=== PATIENT | male | born 1965 | race Caucasian/White ===

== ENCOUNTER 2024-04-29 11:27 | Inpatient (IN) | payer BC ==
--- NOTE | 2024-04-29 12:11 | RAD REPORT ---
EXAM DESCRIPTION: CT - Stone Protocol - 04/29/2024 11:58 am CLINICAL HISTORY: Gross hematuria COMPARISON: None. TECHNIQUE: Computed axial tomography of the abdomen pelvis was obtained without oral or IV contrast. Lack of IV and oral contrast limits evaluation of solid organs, appendix, bowel, and vessels. Jenkins l reformatted images were obtained and reviewed. All CT scans are performed using dose optimization technique as appropriate and may include automated exposure control or mA/KV adjustment according to patient size. FINDINGS: Tiny calculus left kidney. No hydronephrosis. No left ureteral calculus seen. Several small right renal calculi appear borderline hydronephrosis. Right perirenal stranding. Right ureteral calculus is not visualized. No bladder calculus. 1 centimeter mass extends off the lower alcira e right kidney. This is nonspecific but may represent a cyst. Liver, spleen, pancreas and adrenals grossly normal. The liver, spleen, pancreas and adrenals appear grossly normal There is no evidence of diverticulitis. The appendix appears normal IMPRESSION: Nonobstructing bilateral renal calculi. Borderline right hydronephrosis. Perhaps this is secondary to a recently passed calculus.
[2024-04-29 12:26] LABS: Absolute Eosinophils 0.1 K/uL (0-0.5); Absolute Lymphocytes (CBC) 0.4 K/uL (0.7-4.9); Absolute Monocytes 0.1 K/uL (0.1-1.3); Absolute Neutrophil 16.4 K/uL (1.8-8.0); Basophils % 0.2 % (0-1.3); Eosinophils % 0.3 % (0-4.4); Hematocrit 50.1 % (39.6-49.0); Lymphocytes % 2.2 % (15.3-44.8); MCH 31.5 pg (27.0-35.0); MCV 92.7 fL (80-100); MPV 8.6 fL (7.6-11.3); Monocytes % 0.7 % (3.3-12.3); Neutrophils % 96.6 % (41.7-73.7); Platelets 203 thou/uL (152-406); Red Cell Distribution Width 13.5 % (12.1-15.2)
[2024-04-29] MEDS ORDERED: NA CHLORIDE 0.9% 1,000 ML ONE ×2 (12:57→14:17)
[2024-04-29 12:59] LABS: Differential Total Cells Count 100; Segmented Neutrophils 81 % (40-80); White Blood Cell Scan OK (OK)
[2024-04-29 13:00] LABS: Band Neutrophils 5 % (0-1); Blood Morphology Comment NOT SEEN (NOT SEEN); Eosinophils 1 % (0-3); Lymphocytes 3 % (15-42); Metamyelocytes 1 % (0-0); Monocytes 9 % (0-10); Platelet Estimate ADEQ; Toxic Granulation 1+
[2024-04-29 13:05] LABS: Albumin 2.5 g/dL (3.4-5.0); Albumin/Globulin Ratio 0.4 (1.1-1.8); Anion Gap 16.7 mEq/L (5.0-15.0); Bilirubin Total 0.9 mg/dL (0.2-1.0); Globulin 5.9 g/dL (2.3-3.5); Potassium 3.7 mEq/L (3.5-5.1); Protein, Total 8.4 g/dL (6.4-8.2)
[2024-04-29 13:25] LABS: Urine RBC >50 /HPF (None Seen); Urine WBC 20-50 /HPF (<5)
[2024-04-29 13:26] LABS: PTT, Activated Partial Thromb 27.2 SECONDS (24.3-36.9); Protime INR 1.28
[2024-04-29 13:26] LABS: Sqamous Epithelial <5 /HPF (None Seen); Urine Bacteria None Seen /HPF (<20); Urine Culture Reflex Order REFLEXED
[2024-04-29 13:42] LABS: Urine Micro Reflex YN NO BILL MICROSCOPIC
--- NOTE | 2024-04-29 13:52 | EDPHYS ---
Physician Documentation [facility] Name: Jose Aguilar Age: 58 yrs Sex: Male : 1965 Arrival Date: 04/29/2024 Time: 11:27 Bed 25 Private MD: ED Physician Ashwin Godinez HPI: 04/29 13:26 This 58 yrs old Male presents to ER via Ambulatory with complaints of Urinary Problem - rn Bleeding. 13:26 The patient presents with urinary symptoms, Hematuria. Onset: The symptoms/episode rn began/occurred 1 week(s) ago. Modifying factors: The symptoms are alleviated by nothing, the symptoms are aggravated by urinating. Severity of symptoms: At their worst the symptoms were mild, in the emergency department the symptoms are unchanged. The patient has not experienced similar symptoms in the past. The patient has not recently seen a physician. Historical: - Allergies: 11:47 No Known Allergies; iw - Home Meds: 11:50 None [Active]; iw - PMHx: 11:50 None; iw - PSHx: 11:50 None; iw - Immunization history:: Adult Immunizations not up to date. - Infectious Disease History:: Denies. - Social history:: Smoking status: Patient reports the use of cigarette tobacco products, smokes one-half pack cigarettes per day. - Family history:: not pertinent. - Hospitalizations: : No recent hospitalization is reported. ROS: 13:26 Constitutional: Negative for fever, chills, and weight loss, Cardiovascular: Negative rn for chest pain, palpitations, and edema, Respiratory: Negative for shortness of breath, cough, wheezing, and pleuritic chest pain, Abdomen/GI: Positive for intermittent right flank pain Back: Negative for injury : Positive for hematuria MS/Extremity: Negative for injury and deformity, Exam: 13:26 Constitutional: This is a well developed, well nourished patient who is awake, alert, rn and in no acute distress. Cardiovascular: Regular rate and rhythm. No pulse deficits. Respiratory: No increased work of breathing, no retractions or nasal flaring. Abdomen/GI: Soft, nontender Back: No spinal tenderness. No costovertebral tenderness 15:02 ECG was reviewed by the Attending Physician. rn Vital Signs: 11:46 BP 151 / 60; Pulse 110; Resp 16; Temp 97.5; Pulse Ox 98% ; iw 13:20 BP 149 / 81; Pulse 86; Resp 18; Pulse Ox 100% on R/A; ld1 20:45 BP 151 / 68; Pulse 97; Resp 16; Temp 98.5; Pulse Ox 98% ; Pain 0/10; jj7 20:45 Pain Scale: Adult jj7 MDM: 11:48 Patient medically screened. rn 13:49 Differential diagnosis: nonspecific abdominal pain, UTI, prostatitis, urethritis, rn Kidney stone, pyelonephritis. Data reviewed: vital signs, nurses notes, lab test result(s), radiologic studies, CT scan, and as a result, I will admit patient. Consideration of Admission/Observation Patient was admitted/placed on observation. Escalation of care including admission/observation considered. Counseling: I had a detailed discussion with the patient and/or guardian regarding the historical points, exam findings, and any diagnostic results supporting the discharge/admit diagnosis, lab results, radiology results, the need for further work-up and treatment in the hospital. Response to treatment: the patient's symptoms have mildly improved after treatment, and as a result, I will admit patient. ED course: CT shows possibly recently passed stone, no urinary tract calculus at this time. Does show perinephric stranding on the right side which fits patient's presentation. Will admit for IV antibiotics. Elevated lactate, communicated this to inpatient team.. 04/29 11:50 Order name: CBC with Diff; Complete Time: 13:41 04/29 11:50 Order name: CMP; Complete Time: 13:41 04/29 12:31 Order name: CBC Smear Scan; Complete Time: 13:41 [facility] 04/29 12:42 Order name: Blood Culture Adult (2) 04/29 12:42 Order name: Lactate w/ 2H reflex if indic.; Complete Time: 13:51 04/29 12:42 Order name: Protime (+inr); Complete Time: 13:41 04/29 12:42 Order name: Ptt, Activated; Complete Time: 13:41 04/29 13:00 Order name: Manual Differential; Complete Time: 13:41 [facility] 04/29 13:06 Order name: Urine Microscopic Only; Complete Time: 13:51 [facility] 04/29 13:29 Order name: Urine Culture [facility] 04/29 15:40 Order name: Ghost Lactate-NO COLLECT Timer; Complete Time: 18:14 [facility] 04/29 16:04 Order name: CBC with Automated Diff [facility] 04/29 16:04 Order name: CBC with Automated Diff [facility] 04/29 16:04 Order name: Comprehensive Metabolic Panel [facility] 04/29 16:04 Order name: Comprehensive Metabolic Panel [facility] 04/29 16:04 Order name: Liver (Hepatic) Function [facility] 04/29 16:04 Order name: Liver (Hepatic) Function [facility] 04/29 16:04 Order name: Protime (+INR) [facility] 04/29 16:04 Order name: Protime (+INR) [facility] 04/29 16:04 Order name: PTT, Activated Partial Thromb [facility] 04/29 16:04 Order name: PTT, Activated Partial Thromb [facility] 04/29 16:04 Order name: Troponin High Sensitivity [facility] 04/29 16:04 Order name: Troponin High Sensitivity [facility] 04/29 20:02 Order name: Lactate Sepsis 2 HR Follow-up [facility] 04/29 11:50 Order name: CT Stone Protocol; Complete Time: 12:42 rn 04/29 18:09 Order name: US; Complete Time: 18:14 [facility] 04/29 12:42 Order name: EKG; Complete Time: 12:43 rn 04/29 16:04 Order name: CONS Physician Consult [facility] 04/29 11:50 Order name: IV Saline Lock; Complete Time: 12:35 rn 04/29 11:50 Order name: Labs collected and sent; Complete Time: 12:35 rn 04/29 12:42 Order name: Accucheck; Complete Time: 12:50 rn 04/29 12:42 Order name: Cardiac monitoring; Complete Time: 12:51 rn 04/29 12:42 Order name: EKG - Nurse/Tech; Complete Time: 13:41 rn 04/29 12:42 Order name: IV Saline Lock - Large Bore; Complete Time: 12:51 rn 04/29 12:42 Order name: O2 Per Protocol; Complete Time: 12:50 rn 04/29 12:42 Order name: O2 Sat Monitoring; Complete Time: 12:50 rn 04/29 12:42 Order name: Vital Signs; Complete Time: 12:50 rn EC:02 Rate is 92 beats/min. Rhythm is regular. QRS [place] is Normal. IN interval is normal. QRS rn interval is normal. QT interval is normal. No Q waves. T waves are Normal. No ST changes noted. Clinical impression: Normal ECG. Interpreted by me. Reviewed by me. Administered Medications: 13:20 Drug: NS 0.9% IV 500 ml IV at bolus once Route: IV; Rate: bolus; Site: left antecubital;ld1 14:22 Drug: Cefepime IVPB 1 grams IVPB at 200 ml/hr once over 30 mins; (mix in NS 100 mL) ld1 Route: IVPB; Rate: 200 ml/hr; Infused Over: 30 mins; Site: left antecubital; 14:22 Drug: NS 0.9% IV 1000 ml IV at 1000 ml once Route: IV; Rate: 1000 ml; Site: left ld1 antecubital; Disposition Summary: 04/29/24 13:51 Hospitalization Ordered Notes: Hospitalization Status: Inpatient Admission rn Provider: Dameon Landeros rn Location: Telemetry/MedSurg (Inpatient) rn Condition: Stable rn Problem: new rn Symptoms: have improved rn Bed/Room Type: Standard rn Room Assignment: 201(04/29/24 20:36) vk Diagnosis - Pyelonephritis acute rn - Hematuria, unspecified rn Forms: - Medication Reconciliation Form rn - SBAR form rn - Leadership Thank You Letter rn Signatures: Dispatcher [employer] EDMichelle Dumas, RN RN Ashwin Galarza MD MD rn Sims, Lauren, RN RN ld1 Ingrid Cannon Corrections: (The following items were deleted from the chart) 11:50 11:50 Stone Protocol+CT.RAD.BRZ ordered. EDMS EDMS 12:43 12:43 BLOOD CULTURE*+BA.LAB.BRZ ordered. EDMS EDMS 12:43 12:43 LACTATE+C.LAB.BRZ ordered. EDMS EDMS 12:43 12:43 PROTIME (+INR)+COAG.LAB.BRZ ordered. EDMS EDMS 12:43 12:43 PTT, ACTIVATED+COAG.LAB.BRZ ordered. EDMS EDMS 13:05 11:50 Urinalysis+U.LAB.BRZ ordered. EDMS EDMS 20:36 13:51 rn rehan
--- NOTE | 2024-04-29 13:52 | ER ---
Nurse's Notes [facility] Name: Jose Aguilar Age: 58 yrs Sex: Male : 1965 Arrival Date: 04/29/2024 Time: 11:27 Bed 25 Private MD: Diagnosis: Pyelonephritis acute;Hematuria, unspecified Presentation: 04/29 11:46 Chief complaint: Patient states: about a week ago I was peeing blood, + nausea, no iw energy, urinating more frequently , denies pain. Coronavirus screen: At this time, the client does not indicate any symptoms associated with coronavirus-19. Onset of symptoms was April 22, 2024. 11:46 Method Of Arrival: Ambulatory iw 11:46 Acuity: BETY 3 iw Historical: - Allergies: 11:47 No Known Allergies; iw - Home Meds: 11:50 None [Active]; iw - PMHx: 11:50 None; iw - PSHx: 11:50 None; iw - Immunization history:: Adult Immunizations not up to date. - Infectious Disease History:: Denies. - Social history:: Smoking status: Patient reports the use of cigarette tobacco products, smokes one-half pack cigarettes per day. - Family history:: not pertinent. - Hospitalizations: : No recent hospitalization is reported. Screenin:05 [facility] ED Fall Risk Assessment (Adult) History of falling in the last 3 months, jj7 including since admission No falls in past 3 months (0 pts) Confusion or Disorientation No (0 pts) Intoxicated or Sedated No (0 pts) Impaired Gait No (0 pts) Mobility Assist Device Used No (0 pt) Altered Elimination No (0 pt) Score/Fall Risk Level 0 - 2 = Low Risk Oriented to surroundings, Maintained a safe environment, Educated pt \T\ family on fall prevention, incl call for assistance when getting out of bed. Abuse screen: Denies threats or abuse. Nutritional screening: No deficits noted. Tuberculosis screening: No symptoms or risk factors identified. Assessment: 19:05 General: Appears in no apparent distress. comfortable, Behavior is calm, cooperative, jj7 appropriate for age. Pain: Denies pain. GI: Reports nausea. : Reports urinary frequency, PT STATES HE HAS BEEN HAVING BLOOD IN HIS URINE ABOUT 1 WEEK AGO. Vital Signs: 11:46 BP 151 / 60; Pulse 110; Resp 16; Temp 97.5; Pulse Ox 98% ; iw 13:20 BP 149 / 81; Pulse 86; Resp 18; Pulse Ox 100% on R/A; ld1 20:45 BP 151 / 68; Pulse 97; Resp 16; Temp 98.5; Pulse Ox 98% ; Pain 0/10; jj7 20:45 Pain Scale: Adult j7 ED Course: 11:39 Patient arrived in ED. mg5 11:47 Triage completed. iw 11:48 Ashwin Godinez MD is Attending Physician. rn 11:51 Arm band placed on. iw 11:59 CT Stone Protocol In Process Unspecified. EDMS 12:50 Farhana Bee, RN is Primary Nurse. ld1 13:20 Blood Culture Adult (2) Sent. ld1 13:20 Lactate w/ 2H reflex if indic. Sent. ld1 13:50 Dameon Landeros MD is Hospitalizing Provider. rn 19:05 Patient has correct armband on for positive identification. Bed in low position. Call jj7 light in reach. Side rails up X2. Provided Education on: USE OF CALL BISHOP. PO fluids given. 19:05 Inserted saline lock: 20 gauge in left antecubital area, using aseptic technique. jj7 ,using aseptic technique. INSERTED BY DAYS SHIFT NURSE. 19:05 No provider procedures requiring assistance completed. jj7 20:00 Primary Nurse role handed off by Farhana Bee, RN as6 21:01 Patient admitted, IV remains in place. jj7 Administered Medications: 13:20 Drug: NS 0.9% IV 500 ml IV at bolus once Route: IV; Rate: bolus; Site: left antecubital;ld1 14:22 Drug: Cefepime IVPB 1 grams IVPB at 200 ml/hr once over 30 mins; (mix in NS 100 mL) ld1 Route: IVPB; Rate: 200 ml/hr; Infused Over: 30 mins; Site: left antecubital; 14:22 Drug: NS 0.9% IV 1000 ml IV at 1000 ml once Route: IV; Rate: 1000 ml; Site: left ld1 antecubital; Medication: 19:05 VIS not applicable for this client. jj7 Outcome: 13:51 Decision to Hospitalize by Provider. rn 21:20 Admitted to Med/surg accompanied by nurse, via wheelchair, room 201, Report called to jjKeaton REPORT FAXED TO 2ND FLOOR 21:20 Condition: good 21:32 Patient left the ED. ss Signatures: Dispatcher [employer] Michelle Shin, Ashwin De Dios RN, MD MD rn Blanchard, Shelby, RN RN ss Sims, Lauren, RN RN ld1 Jeffrey Vargas RN RN as6 David Alcocer RN RN jj7 Michelle Hatfield [facility] [place]
[2024-04-29] MEDS ORDERED: NA CHLORIDE 0.9% 100 ML ONE (14:15)
[2024-04-29] MEDS ORDERED: CEFAZOLIN SODIUM 2 GM/VIAL ONE (14:15)
[2024-04-29] MEDS ORDERED: MORPHINE 2 MG/ML SYR IV PRN (15:57)
--- NOTE | 2024-04-29 16:16 | P.HP ---
Certification for Inpatient Patient admitted to: Inpatient With expected LOS: >2 Midnights Patient will require the following post-hospital care: None Practitioner: I am a practitioner with admitting privileges, knowledge of patient current condition, hospital course, and medical plan of care. Services: Services provided to patient in accordance with Admission requirements found in Title 42 Section 412.3 of the Code of Federal Regulations Patient History Date of Service: 04/29/24 Reason for admission: Hematuria; CARIDAD; lactic acidosis; leukocytosis History of Present Illness: Patient is a 58-year-old gentleman came to the hospital for hematuria. According to patient's son has been going on for about a week. Patient did not want to come into the hospital, but the son who was in the medical field persuaded him to go get evaluated. Patient had gross hematuria for the last 5 to 6 days. He also had gross hematuria this morning, but after getting IV fluids in the ER the patient states that is pretty much resolved. He has not noticed any bright red blood since he has been in the emergency room. His urine is a dark [employer] type color. Patient had imaging studies in the emergency room-CT stone protocol-which revealed that patient had right-sided nephrolithiasis with possible right hydronephrosis and right perinephric stranding. Patient also had a right renal mass which was about 1 cm. It was in the inferior pole of the right kidney. Patient will get started on IV antibiotics. Patient denies any weight loss, and patient denies any generalized weakness. At this time, patient will be admitted to the hospital for inpatient hospitalization. Will do aggressive IV hydration and IV antibiotics. Will consult urology for further assistance in patient's care. Will also get a renal ultrasound. Patient may need further CT imaging to further evaluate the right renal mass, so we will wait for urology evaluation prior to deciding on this. - Past Medical/Surgical History Past Medical History: Patient denies medical history Past Surgical History: Patient denies surgical history - Family History Father Family History: Reviewed- Non-Contributory - Social History Smoking Status: Never smoker Alcohol use: No CD- Drugs: No Review of Systems 10-point ROS is otherwise unremarkable Physical Examination - Vital Signs Temperature: 98 F Blood Pressure: 150/80 Pulse: 88 Respirations: 22 - Physical Exam General: Alert, In no apparent distress, Oriented x3 HEENT: Atraumatic, PERRLA, Mucous membr. moist/pink, EOMI, Sclerae nonicteric Neck: Supple, 2+ carotid pulse no bruit, No LAD, Without JVD or thyroid abnormality Respiratory: Clear to auscultation bilaterally, Normal air movement Cardiovascular: Regular rate/rhythm, Normal S1 S2 Gastrointestinal: Normal bowel sounds, Soft and benign, Non-distended, Tenderness (Tenderness) Musculoskeletal: No clubbing, No swelling, No tenderness Integumentary: No rashes Neurological: Normal gait, Normal speech, Normal strength at 5/5 x4 extr, Normal tone, Sensation intact, Cranial nerves 3-12 intact, Normal affect Lymphatics: No axilla or inguinal lymphadenopathy - Studies Laboratory Data (last 24 hrs) 04/29/24 04/29/24 04/29/24 13:05 12:18 12:18 WBC 17.00 H Hgb 17.0 Hct 50.1 H Plt Count 203 PT 14.0 H INR 1.28 APTT 27.2 Sodium 121 L Potassium 3.7 BUN 72 H Creatinine 2.41 H Glucose 513 H* Total Bilirubin 0.9 AST 25 ALT 36 Alkaline Phosphatase 189 H Assessment & Plan - Problems (Diagnosis) (1) Gross hematuria Current Visit: Yes Status: Acute (2) Pyelonephritis of right kidney Current Visit: Yes Status: Acute (3) Hydronephrosis, right Current Visit: Yes Status: Acute (4) Nephrolithiasis Current Visit: Yes Status: Acute (5) CARIDAD (acute kidney injury) Current Visit: Yes Status: Acute (6) Hyponatremia Current Visit: Yes Status: Acute (7) Right renal mass Current Visit: Yes Status: Acute (8) Lactic acidosis Current Visit: Yes Status: Acute (9) Leukocytosis Current Visit: Yes Status: Acute (10) Hypercalcemia Current Visit: Yes Status: Acute - Plan Plan: 1. Continue with aggressive IV hydration along with IV antibiotic therapy 2. Strain urine 3. Urology consultation 4. Lab findings concerning for renal cell carcinoma with secondary paraneoplastic syndrome; check PTH-RP and vasopressin levels 5. Monitor renal function; nephrology consultation 6. Renal ultrasound 7. Check BMP every 6 hours to slowly correct urine sodium 8 mEq/dL every 24 brooks rs 8. If renal function is not improving will consult nephrology 9. Repeat lactic acid level; most likely related to dehydration 10. Repeat white blood cell levels for monitoring leukocytosis 11. GI DVT prophylaxis Discharge Plan: Home Plan to discharge in: Greater than 2 days - Advance Directives Does patient have a Living Will: No Does patient have a Durable POA for Healthcare: No - Code Status/Comfort Care Code Status Assessed: Yes Code Status: Full Code Critical Care: No Time Spent Managing PTS Care (In Minutes): 45
[2024-04-29] MEDS: NA CHLORIDE 0.9% 500 ML IV ONE (18:00)
--- NOTE | 2024-04-29 18:09 | RAD REPORT ---
EXAM DESCRIPTION: US - Renal Ultrasound-Complete - 04/29/2024 5:45 pm CLINICAL HISTORY: evaluate right renal mass and CARIDAD COMPARISON: Stone Protocol dated 04/29/2024 FINDINGS: Both kidneys are normal in size, shape and echotexture. The right kidney measures 14.3 cm. No hydronephrosis, focal mass or perinephric fluid. The left kidney measures 12.9 cm. No hydronephrosis, focal mass or perinephric fluid. Debris is present within the bladder. IMPRESSION: 1. No sonographic correlate to the possible right renal mass identified on CT. Suspicion for a clinically significant mass is low based on the CT appearance and lack of visualization on ult rasound. Renal protocol CT or MRI, which can be performed nonemergently, is always an option. 2. No hydronephrosis. 3. Bladder debris which is nonspecific.
[2024-04-29] MEDS ORDERED: ONDANSETRON 4 MG/2 ML VIAL ONE (20:05)
[2024-04-29] MEDS: ONDANSETRON 4 MG/2 ML VIAL IV PRN (20:08)
[2024-04-29] MEDS ORDERED: D50W 25 GM/50 ML SYRINGE IV PRN (21:31)
[2024-04-29] MEDS ORDERED: GLUCAGON 1 MG/VIAL IM PRN (21:31)
[2024-04-29] MEDS ORDERED: D10W 125 ML IV PRN (21:33)
--- NOTE | 2024-04-29 21:58 | P.CNS ---
Date of Consult: 04/29/24 Reason for Consult: gross hematuria Chief Complaint: Hematuria; CARIDAD; lactic acidosis; leukocytosis History of Present Illness: 58-year-old gentleman with no documented PMHx except 2 episodes of ureterolithiasis, which he suggests he spontaneously passed, presents with 1 week of gross hematuria and obstructive LUTS. Prior to that time, he denied any dysuria or bothersome urinary symptoms, only acknowledging frequency x 2, urgency x 1, and nocturia x 1. AUA symptom score 4/35 His son suggests he has had significant degree of weight loss, and the patient acknowledges some anorexia that has been present over the last 1 week. Past medical history: Recurrent stone former Past surgical history: No abdominal or pelvic or thoracic surgeries No known drug allergies Family history: Denies urologic malignancy Social history: Active smoker of approximately 1/2 pack/day for 30 years Examination: Patient weak and required assistance to stand and transfer from the wheelchair to the bed but in no acute distress Alert, awake, oriented x 3 No dyspnea or sign of respiratory distress No cervical/supraclavicular adenopathy or thyromegaly Abdomen soft, nontender, nondistended, no masses No lower extremity edema or Homans' sign Pulse 2+ radial and tachycardic 04/29/2024 WBC 17.0, hemoglobin 17.0, platelets 203, sodium 121, potassium 3.7, chloride 81, bicarb 27, BUN 72, creatinine 2.41 with EGFR 30, calcium 11.5, alk phos elevated 189, lactate 2.5 that improved to 1.3 while in the ER, glucose 513, anion gap 16.7 UA micro greater than 50 RBCs per hpf, 20-50 WBCs per hpf -He was given ceftriaxone. 04/29/2024 CT without contrast my review: Nonobstructive right 6 mm nephrolithiasis/Bib's plaque in the setting of bilateral perinephric stranding. Negligible/borderline right hydronephrosis but no ureteral calculi or ureteral nephrosis noted. Radiologist review of CT suggested the presence of a 1 cm renal mass. 04/29/2024 renal ultrasound IMPRESSION: 1. No sonographic correlate to the possible right renal mass identified on CT. Suspicion for a clinically significant mass is low based on the CT appearance and lack of visualization on ultrasound. Renal protocol CT or MRI, which can be performed nonemergently, is always an option. 2. No hydronephrosis. 3. Bladder debris which is nonspecific. Assessment and recommendation: 58-year-old gentleman recurrent stone former and active [id number] smoker with gross hematuria in the absence of prior obstructive LUTS or dysuria, now admitted with signs of pyelonephritis, metabolic acidosis possible DKA, CKD stage IIIb versus CARIDAD due to dehydration, hypercalcemia, and nephrolithiasis nonobstructive with suspected 1 cm right renal lesion. -Recommend patient be bolused significant IV fluids with NS -Monitor blood glucose levels and provide SSI versus insulin drip -Agree with IV antimicrobials via ceftriaxone pending results of cultures taken -Check bladder scan PVR and notify me if > 400cc retained -Recommend repeat renal ultrasound once well-hydrated in approximately 2 days to assess for interval unmasking of hydronephrosis potentially contributing to his CARIDAD -Will require repeat CT or MRI with IV contrast and delayed phase imaging to characterize the renal lesion and assess for enhancement as well as ruling out upper tract urothelial filling defect/mass. Allergies No Known Allergies Allergy (Unverified 04/29/24 17:23) - Past Medical/Surgical History Diabetic: Yes Past Medical History: Patient denies medical history - Family History Father Family History: Reviewed- Non-Contributory - Social History Alcohol use: No CD- Drugs: No Physical Examination Temp Pulse Resp BP Pulse Ox 98 F 88 22 H 150/80 H 04/29/24 16:19 04/29/24 16:19 04/29/24 16:19 04/29/24 16:19 Laboratory Data (last 24 hrs) 04/29/24 04/29/24 04/29/24 13:05 12:18 12:18 WBC 17.00 H Hgb 17.0 Hct 50.1 H Plt Count 203 PT 14.0 H INR 1.28 APTT 27.2 Sodium 121 L Potassium 3.7 BUN 72 H Creatinine 2.41 H Glucose 513 H* Total Bilirubin 0.9 AST 25 ALT 36 Alkaline Phosphatase 189 H - Problems (1) Renal lesion Current Visit: Yes Status: Acute (2) DKA (diabetic ketoacidosis) Current Visit: Yes Status: Acute (3) CARIDAD (acute kidney injury) Current Visit: Yes Status: Acute (4) Gross hematuria Current Visit: Yes Status: Acute (5) Hypercalcemia Current Visit: Yes Status: Acute (6) Lactic acidosis Current Visit: Yes Status: Acute (7) Nephrolithiasis Current Visit: Yes Status: Acute (8) Pyelonephritis of right kidney Current Visit: Yes Status: Acute Conclusions/Impression: see A&P in HPI Critical Care: No Time Spent Managing Pts care (In Minutes): 45
[2024-04-29] MEDS: INSULIN REGULAR (HUMAN) 100 UNIT/ML ONE (22:00)
[2024-04-29] MEDS: INSULIN REGULAR (HUMAN) 100 UNIT/ML SQ SCH (22:09)
[2024-04-29] MEDS: INSULIN GLARGINE 100 UNIT/ML SQ SCH (22:09)
[2024-04-29] MEDS: NA CHLORIDE 0.9% 1,000 ML IV ONE ×2 (22:10→23:05)
[2024-04-29 22:42] LABS: Anion Gap 17.8 mEq/L (5.0-15.0); Magnesium 2.9 mg/dL (1.6-2.4); Phosphorus 4.9 mg/dL (2.5-4.9); Potassium 3.8 mEq/L (3.5-5.1)
[2024-04-29 23:03] VITALS: BMI 25.8
[2024-04-29] MEDS: NA CHLORIDE 0.9% 1,000 ML IV SCH (23:24)
[2024-04-30] MEDS: INSULIN REGULAR (HUMAN) 100 UNIT/ML SQ ONE (01:06)
[2024-04-30 02:37] LABS: Anion Gap 12.3 mEq/L (5.0-15.0); Potassium 3.3 mEq/L (3.5-5.1)
[2024-04-30] MEDS: CEFTRIAXONE 1,000 MG in NA CHLORIDE 0.9% 50 ML IVPB SCH (08:16)
[2024-04-30] MEDS ORDERED: MORPHINE 4 MG/ML SYR IV PRN (09:01)
--- NOTE | 2024-04-30 10:11 | P.DS ---
Admission Date: 04/29/24 Discharge Date: 04/30/24 Disposition: DC HOME/HOME HEALTH CARE Discharge Condition: GOOD Reason for Admission: Hematuria; CARIDAD; lactic acidosis; leukocytosis Brief History of Present Illness: Patient is a 58-year-old gentleman came to the hospital for hematuria. According to patient's son has been going on for about a week. Patient did not want to come into the hospital, but the son who was in the medical field persuaded him to go get evaluated. Patient had gross hematuria for the last 5 to 6 days. He also had gross hematuria this morning, but after getting IV fluids in the ER the patient states that is pretty much resolved. He has not noticed any bright red blood since he has been in the emergency room. His urine is a dark [employer] type color. Patient had imaging studies in the emergency room-CT stone protocol-which revealed that patient had right-sided nephrolithiasis with possible right hydronephrosis and right perinephric stranding. Patient also had a right renal mass which was about 1 cm. It was in the inferior pole of the right kidney. Patient will get started on IV antibiotics. Patient denies any weight loss, and patient denies any generalized weakness. At this time, patient will be admitted to the hospital for inpatient hospitalization. Will do aggressive IV hydration and IV antibiotics. Will consult urology for further assistance in patient's care. Will also get a renal ultrasound. Patient may need further CT imaging to further evaluate the right renal mass, so we will wait for urology evaluation prior to deciding on this. - Physical Exam General: Alert, In no apparent distress, Oriented x3 HEENT: Atraumatic, PERRLA, Mucous membr. moist/pink, EOMI, Sclerae nonicteric Neck: Supple, 2+ carotid pulse no bruit, No LAD, Without JVD or thyroid abnormality Respiratory: Clear to auscultation bilaterally, Normal air movement Cardiovascular: Regular rate/rhythm, Normal S1 S2 Gastrointestinal: Normal bowel sounds, Soft and benign, Non-distended, Tenderness (Tenderness) Musculoskeletal: No clubbing, No swelling, No tenderness Integumentary: No rashes Neurological: Normal gait, Normal speech, Normal strength at 5/5 x4 extr, Normal tone, Sensation intact, Cranial nerves 3-12 intact, Normal affect Lymphatics: No axilla or inguinal lymphadenopathy Hospital Course: 58 year-old patient presented with abdominal pain was noted to have leukocytosis, pyelonephritis, renal mass. Condition improved with IV fluids, IV antibiotics. He was evaluated by urology. Patient tolerating diet, stable for discharge to home with follow-up appointment with primary care physician. Will need to follow-up with urology after discharge. PROBLEM: Pyelonephritis treated with IV antibiotics, transition to p.o. antibiotic Leukocytosis, treated with IV antibiotics, transition to p.o. antibiotic, trend culture Obstructive uropathy, will need to follow-up with urology after discharge Renal mass 1 cm Hematuria-evaluated by urology Mild diffuse fatty liver-remain on low fat, low cholesterol diet Small hiatal hernia. radiology 04/29/2024 CT without contrast my review: Nonobstructive right 6 mm nephrolithiasis/Bib's plaque in the setting of bilateral perinephric stranding. Negligible/borderline right hydronephrosis but no ureteral calculi or ureteral nephrosis noted. Radiologist review of CT suggested the presence of a 1 cm renal mass. Repeat CT scan with contrast- 04/30 FINDINGS: Mild subsegmental atelectasis is present in both lung bases. Mild diffuse fatty liver. Small hiatal hernia. The spleen, pancreas, adrenal glands left kidney are within normal limits. Punctate calculus is seen midpole right kidney. There is a moderate inflamed appearance of the right kidney with multiple areas of hypoattenuation. This pattern is typical of pyelonephritis. No perinephric abscess. Urinary bladder wall thickening is present. No bowel obstruction, free air, free fluid or abscess. Moderate stool is present throughout the colon. The appendix is normal. No evidence of significant lymphadenopathy. Mild lumbar degenerative changes. IMPRESSION: There is a moderate right pyelonephritis pattern seen. No abscess present UA mixed normal arnol Blood cultures ordered gram-positive cocci in clusters Continue home medicines as previously prescribed GOAL: Clear understanding of disease process INSTRUCTIONS: Physician Discharge Instructions: -Follow-up with PCP in 1 to 2 weeks -Please call Dr. Landeros at [phone] if any questions regarding hospital stay -Please call nursing station at [phone] if any nursing or medication questions -Return to the emergency room if symptoms worsen Diet: ADA, low sodium Activity: Fall precautions Vital Signs/Physical Exam: Temp Pulse Resp BP Pulse Ox 98.4 F 104 H 16 161/74 H 94 04/30/24 08:00 04/30/24 08:00 04/30/24 08:00 04/30/24 08:00 04/30/24 08:00 Laboratory Data at Discharge: WBC 17.00 thou/uL (4.3-10.9) H 04/29/24 12:18 Hgb 17.0 g/dL (13.6-17.9) 04/29/24 12:18 Hct 50.1 % (39.6-49.0) H 04/29/24 12:18 Plt Count 203 thou/uL (152-406) 04/29/24 12:18 PT 14.0 SECONDS (9.4-12.5) H 04/29/24 13:05 INR 1.28 04/29/24 13:05 APTT 27.2 SECONDS (24.3-36.9) 04/29/24 13:05 Sodium 128 mEq/L (136-145) L 04/30/24 02:01 Potassium 3.3 mEq/L (3.5-5.1) L D 04/30/24 02:01 BUN 69 mg/dL (7-18) H 04/30/24 02:01 Creatinine 1.81 mg/dL (0.70-1.30) H 04/30/24 02:01 Glucose 365 mg/dL (74-106) H 04/30/24 02:01 Phosphorus 4.9 mg/dL (2.5-4.9) 04/29/24 22:03 Magnesium 2.9 mg/dL (1.6-2.4) H 04/29/24 22:03 Total Bilirubin 0.9 mg/dL (0.2-1.0) 04/29/24 12:18 AST 25 U/L (15-37) 04/29/24 12:18 ALT 36 U/L (16-61) 04/29/24 12:18 Alkaline Phosphatase 189 U/L (45-117) H 04/29/24 12:18 Home Medications: NK [No Home Meds] 04/29/24 Physician Discharge Instructions: 58 year-old patient presented with abdominal pain was noted to have leukocytosis, pyelonephritis, renal mass. Condition improved with IV fluids, IV antibiotics. He was evaluated by urology. Patient tolerating diet, stable for discharge to home with follow-up appointment with primary care physician. Will need to follow-up with urology after discharge. PROBLEM: obstructive LUTS lower urinary tract symptom evaluated by urology, follow-up with urology after discharge Pyelonephritis treated with IV antibiotics, transition to p.o. antibiotic Leukocytosis, treated with IV antibiotics, transition to p.o. antibiotic, trend culture Possible obstructive uropathy, postvoid residuals, Renal mass 1 cm-not seen or noted on repeat CT scan on 627 Hematuria-evaluated by urology Mild diffuse fatty liver-remain on low fat, low cholesterol diet Small hiatal hernia. Active smoker, educated on tobacco cessation DKA-educated on diabetic diet, strict blood glucose Acute kidney injury Anorexia, poor appetite History of nephrolithiasis radiology 04/29/2024 CT without contrast my review: Nonobstructive right 6 mm nephrolithiasis/Bib's plaque in the setting of bilateral perinephric stranding. Negligible/borderline right hydronephrosis but no ureteral calculi or ureteral nephrosis noted. Radiologist review of CT suggested the presence of a 1 cm renal mass. Repeat CT scan with contrast- 04/30 FINDINGS: Mild subsegmental atelectasis is present in both lung bases. Mild diffuse fatty liver. Small hiatal hernia. The spleen, pancreas, adrenal glands left kidney are within normal limits. Punctate calculus is seen midpole right kidney. There is a moderate inflamed appearance of the right kidney with multiple areas of hypoattenuation. This pattern is typical of pyelonephritis. No perinephric abscess. Urinary bladder wall thickening is present. No bowel obstruction, free air, free fluid or abscess. Moderate stool is present throughout the colon. The appendix is normal. No evidence of significant lymphadenopathy. Mild lumbar degenerative changes. IMPRESSION: There is a moderate right pyelonephritis pattern seen. No abscess present UA mixed normal arnol Continue home medicines as previously prescribed GOAL: Clear understanding of disease process INSTRUCTIONS: Physician Discharge Instructions: -Follow-up with PCP in 1 to 2 weeks -Please call Dr. Landeros at [phone] if any questions regarding hospital stay -Please call nursing station at [phone] if any nursing or medication quest ions -Return to the emergency room if symptoms worsen Diet: ADA, low sodium Activity: Fall precautions Diet: AHA Activity: Fall precautions Followup: NONE,NONE [Primary Care Provider] - James Dewey [ACTIVE - CAN ADMIT] - Time spent managing pt's care (in minutes): 55
[2024-04-30 10:57] LABS: Absolute Basophils 0.1 K/uL (0-0.5); Absolute Lymphocytes (CBC) 0.5 K/uL (0.7-4.9); Absolute Monocytes 0.8 K/uL (0.1-1.3); Basophils % 0.6 % (0-1.3); Eosinophils % 0.2 % (0-4.4); Hematocrit 43.8 % (39.6-49.0); Hemoglobin 14.6 g/dL (13.6-17.9); Lymphocytes % 2.4 % (15.3-44.8); MCH 30.6 pg (27.0-35.0); MCHC 33.4 g/dL (32.0-36.0); MCV 91.6 fL (80-100); MPV 8.3 fL (7.6-11.3); Monocytes % 4.1 % (3.3-12.3); Neutrophils % 92.7 % (41.7-73.7); Platelets 193 thou/uL (152-406); RBC Red Blood Cell Count 4.77 M/uL (4.33-5.43); Red Cell Distribution Width 13.3 % (12.1-15.2)
[2024-04-30 11:08] LABS: PT Prothrombin Time 13.5 SECONDS (9.4-12.5); PTT, Activated Partial Thromb 25.6 SECONDS (24.3-36.9); Protime INR 1.23
--- NOTE | 2024-04-30 11:10 | RAD REPORT ---
EXAM DESCRIPTION: CTAbdomen Pelvis W Contrast - 04/30/2024 11:00 am CLINICAL HISTORY: Abdominal pain. WITH DELAYED PHASE, FOR RENAL MASS COMPARISON: Renal Ultrasound-Complete dated 04/29/2024 TECHNIQUE: Biphasic CT imaging of the abdomen and pelvis was performed with 100 ml non-ionic IV cont rast. All CT scans are performed using dose optimization technique as appropriate and may include automated exposure control or mA/KV adjustment according to patient size. FINDINGS: Mild subsegmental atelectasis is present in both lung bases. Mild diffuse fatty liver. Small hiatal hernia. The spleen, pancreas, adrenal glands left kidney are w ithin normal limits. Punctate calculus is seen midpole right kidney. There is a moderate inflamed jovita earance of the right kidney with multiple areas of hypoattenuation. This pattern is typical of pyelon ephritis. No perinephric abscess. Urinary bladder wall thickening is present. No bowel obstruction, free air, free fluid or abscess. Moderate stool is present throughout the colon . The appendix is normal. No evidence of significant lymphadenopathy. Mild lumbar degenerative changes. IMPRESSION: There is a moderate right pyelonephritis pattern seen. No abscess present.
[2024-04-30 11:16] LABS: Albumin 1.7 g/dL (3.4-5.0); Albumin/Globulin Ratio 0.4 (1.1-1.8); Anion Gap 10.5 mEq/L (5.0-15.0); Bilirubin Direct 0.2 mg/dL (0-0.2); Bilirubin Indirect, Calculated 0.2 mg/dL (0.2-0.8); Bilirubin Total 0.4 mg/dL (0.2-1.0); Globulin 4.5 g/dL (2.3-3.5); Potassium 3.5 mEq/L (3.5-5.1); Protein, Total 6.2 g/dL (6.4-8.2); Troponin High Sensitivity 3.8 pg/mL (<58.9)
--- NOTE | 2024-04-30 13:45 | P.PN ---
Date of Service: 04/30/24 Subjective Hematuria, suprapubic tenderness, urinary frequency, Review of Systems 10-point ROS is otherwise unremarkable Physical Examination - Vital Signs reviewed - Physical Exam General: Alert, In no apparent distress, Oriented x3 Neck: Supple, 2+ carotid pulse no bruit, No LAD, Without JVD or thyroid abnormality Respiratory: Clear to auscultation bilaterally, Normal air movement Cardiovascular: Regular rate/rhythm, Normal S1 S2 Gastrointestinal: Normal bowel sounds, suprapubic tenderness, Musculoskeletal: No clubbing, No swelling, No tenderness Integumentary: No rashes Neurological: Normal gait, Normal speech, Normal strength at 5/5 x4 extr Urinary hematuria, suprapubic tenderness, frequency Assessment & Plan - Problems (Diagnosis) Bacteremia acute Leukocytosis acute Blood/urine cultures, trend cultures, positive for anaerobic, gram-positive cocci in clusters (will get echo rule out vegetative, endocarditis) Trend lactic, WBC Continue with aggressive IV hydration along with IV antibiotic therapy, start vancomycin Diabetic ketoacidosis acute Uncontrolled diabetes with hyperglycemia acute Sliding scale insulin, A1c, Accu-Chek Start long-acting insulin aggressive Gross hematuria acute Pyelonephritis of right kidney acute Hydronephrosis, right acute Nephrolithiasis acute on chronic Right renal mass acute Urology consult Nephrology consult CT of the abdomen 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 GI DVT prophylaxis Full code Discharge Plan: Home Plan to discharge in: Greater than 2 days - Advance Directives Does patient have a Living Will: No Does patient have a Durable POA for Healthcare: No - Code Status/Comfort Care Code Status Assessed: Yes Code Status: Full Code Critical Care: No Time Spent Managing PTS Care (In Minutes): 35 <Maribel Carlos - Last Filed: 04/30/24 13:52> Chart has been reviewed. Events of the last 24 hours have been noted. Case discussed with CARY. I performed a substantial part of the MDM during this patient's care today. I personally made or approved the documented management plan and acknowledge its risk of complications. I agree with the findings and documentation provided in the CARY's notes. Continue with IV antibiotics and waiting for culture results. Urology consulted. <Dameon Landeros - Last Filed: 05/05/24 03:07>
--- NOTE | 2024-04-30 14:09 | EKG ---
Test Date: 2024-04-29 Test Time: 13:38:23 Plate Sensitizer: DANTE MEASUREMENT RESULTS: Intervals: Rate: 92 VT: 180 QRSD: 102 QT: 368 QTc: 455 [place]: P: 53 VT: 180 QRS: 37 T: 5 INTERPRETIVE STATEMENTS: Normal sinus rhythm Normal ECG No previous ECG available for comparison Electronically Signed On 04-30-24 14:07:12 CDT by Derrick Woodall
[2024-04-30] MEDS: VANCOMYCIN 2 GM in NA CHLORIDE 0.9% 500 ML IVPB ONE (14:20)
[2024-04-30] MEDS ORDERED: INSULIN REGULAR (HUMAN) 100 UNIT/ML SQ ONE (23:21)
--- NOTE | 2024-05-01 09:27 | P.PN ---
Date of Service: 05/01/24 Subjective, Low-grade temp overnight, urinary frequency, positive blood cultures, Review of Systems 10-point ROS is otherwise unremarkable Physical Examination - Vital Signs reviewed - Physical Exam General: Alert, febrile overnight Neck: Supple, 2+ carotid pulse no bruit, No LAD, Without JVD or thyroid abnormality Respiratory: Clear to auscultation bilaterally, Normal air movement Cardiovascular: Regular rate/rhythm, Normal S1 S2 Gastrointestinal: suprapubic tenderness, urinary frequency Musculoskeletal: No clubbing, No swelling, No tenderness Integumentary: No rashes Neurological: Normal gait, Normal speech, Normal strength at 5/5 x4 extr Urinary hematuria, suprapubic tenderness, frequency Assessment & Plan - Problems (Diagnosis) Bacteremia acute Leukocytosis acute Blood/urine cultures, trend cultures, positive for anaerobic, gram-positive cocci in clusters (will get echo rule out vegetative, endocarditis) Trend lactic, WBC Continue with aggressive IV hydration along with IV antibiotic therapy, start vancomycin Diabetic ketoacidosis acute Uncontrolled diabetes with hyperglycemia acute Sliding scale insulin, A1c, Accu-Chek Start long-acting insulin aggressive Gross hematuria acute Pyelonephritis of right kidney acute Hydronephrosis, right acute Nephrolithiasis acute on chronic Right renal mass acute Urology consult Nephrology consult CT of the abdomen 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 GI DVT prophylaxis Full code Discharge Plan: Home Plan to discharge in: Greater than 2 days - Advance Directives Does patient have a Living Will: No Does patient have a Durable POA for Healthcare: No - Code Status/Comfort Care Code Status Assessed: Yes Code Status: Full Code Critical Care: No Time Spent Managing PTS Care (In Minutes): 35 <Maribel Carlos - Last Filed: 05/03/24 06:39> Chart has been reviewed. Events of the last 24 hours have been noted. Case discussed with CARY. I performed a substantial part of the MDM during this patient's care today. I personally made or approved the documented management plan and acknowledge its risk of complications. I agree with the findings and documentation provided in the CARY's notes. Continue with IV antibiotics and Blood cultures positive for MSSA. Renal function has improved. Appreciate urology consultation. <Dameon Landeros - Last Filed: 05/05/24 03:08>
[2024-05-01 11:35] LABS: Absolute Basophils 0.1 K/uL (0-0.5); Absolute Eosinophils 0.1 K/uL (0-0.5); Absolute Lymphocytes (CBC) 0.8 K/uL (0.7-4.9); Absolute Monocytes 1.2 K/uL (0.1-1.3); Absolute Neutrophil 15.5 K/uL (1.8-8.0); Basophils % 0.5 % (0-1.3); Eosinophils % 0.6 % (0-4.4); Hematocrit 39.6 % (39.6-49.0); Hemoglobin 13.4 g/dL (13.6-17.9); Lymphocytes % 4.4 % (15.3-44.8); MCH 30.5 pg (27.0-35.0); MCHC 33.7 g/dL (32.0-36.0); MCV 90.6 fL (80-100); MPV 8.3 fL (7.6-11.3); Monocytes % 6.9 % (3.3-12.3); Neutrophils % 87.6 % (41.7-73.7); Platelets 190 thou/uL (152-406); RBC Red Blood Cell Count 4.38 M/uL (4.33-5.43)
[2024-05-01 11:48] LABS: Albumin 1.5 g/dL (3.4-5.0); Albumin/Globulin Ratio 0.3 (1.1-1.8); Anion Gap 13.1 mEq/L (5.0-15.0); Bilirubin Total 0.4 mg/dL (0.2-1.0); Globulin 4.3 g/dL (2.3-3.5); Magnesium 2.8 mg/dL (1.6-2.4); Potassium 3.1 mEq/L (3.5-5.1); Protein, Total 5.8 g/dL (6.4-8.2)
[2024-05-01] MEDS: TAMSULOSIN 0.4 MG SR CAP PO ONE (13:38)
[2024-05-01] MEDS: VANCOMYCIN 1.5 GM in NA CHLORIDE 0.9% 500 ML IVPB SCH (14:34)
[2024-05-01] MEDS: TAMSULOSIN 0.4 MG SR CAP PO SCH (21:42)
--- NOTE | 2024-05-02 07:14 | P.PN ---
Date of Service: 05/02/24 Subjective, Reports still feeling ill, tired, infection not resolving, Review of Systems 10-point ROS is otherwise unremarkable Physical Examination - Vital Signs reviewed - Physical Exam General: Alert, febrile overnight Neck: Supple, 2+ carotid pulse no bruit, No LAD, Without JVD or thyroid abnormality Respiratory: Clear to auscultation bilaterally, Normal air movement Cardiovascular: Regular rate/rhythm, Normal S1 S2 Gastrointestinal: suprapubic tenderness, urinary free Musculoskeletal: No clubbing, No swelling, No tenderness Integumentary: No rashes Neurological: Normal gait, Normal speech, Normal strength at 5/5 x4 extr Urinary hematuria, suprapubic tenderness, frequency Assessment & Plan - Problems (Diagnosis) Bacteremia acute Leukocytosis acute Blood/urine cultures, trend cultures, positive for anaerobic, gram-positive cocci in clusters (will get echo rule out vegetative, endocarditis) Trend lactic, WBC Continue with aggressive IV hydration along with IV antibiotic therapy, start vancomycin Repeat blood and urine and blood cultures Stepup antibiotics to vancomycin, Cardiology consult to rule out endocarditis Diabetic ketoacidosis acute Uncontrolled diabetes with hyperglycemia acute Sliding scale insulin, A1c, Accu-Chek Start long-acting insulin aggressive 05/03 Increase long-acting insulin to 15 twice twice daily from 10 daily Gross hematuria acute Pyelonephritis of right kidney acute Hydronephrosis, right acute Nephrolithiasis acute on chronic Right renal mass acute Urology consult Nephrology consult CT of the abdomen 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 GI DVT prophylaxis Full code Discharge Plan: Home Plan to discharge in: Greater than 2 days - Advance Directives Does patient have a Living Will: No Does patient have a Durable POA for Healthcare: No - Code Status/Comfort Care Code Status Assessed: Yes Code Status: Full Code Critical Care: No Time Spent Managing PTS Care (In Minutes): 35 <Maribel Carlos - Last Filed: 05/03/24 06:42> Chart has been reviewed. Events of the last 24 hours have been noted. Case discussed with CARY. I performed a substantial part of the MDM during this pat ient's care today. I personally made or approved the documented management plan and acknowledge its risk of complications. I agree with the findings and documentation provided in the CARY's notes. Continue with IV antibiotics and Patient with MSSA bacteremia. Continue with IV antibiotics and repeat cultures pending. Consult cardiology for possible JERI. Reconsult urology if bacteremia has not improved. <Dameon Landeros - Last Filed: 05/05/24 03:09>
[2024-05-02 08:52] LABS: Absolute Basophils 0.1 K/uL (0-0.5); Absolute Eosinophils 0.1 K/uL (0-0.5); Absolute Monocytes 1.2 K/uL (0.1-1.3); Absolute Neutrophil 15.8 K/uL (1.8-8.0); Anion Gap 11.2 mEq/L (5.0-15.0); Basophils % 0.6 % (0-1.3); Eosinophils % 0.6 % (0-4.4); Hematocrit 38.3 % (39.6-49.0); Hemoglobin 12.9 g/dL (13.6-17.9); Lymphocytes % 5.3 % (15.3-44.8); MCH 30.5 pg (27.0-35.0); MCHC 33.8 g/dL (32.0-36.0); MCV 90.3 fL (80-100); MPV 8.4 fL (7.6-11.3); Monocytes % 6.5 % (3.3-12.3); Nucleated Red Blood Cells % 0.1 % (0-0); Platelets 198 thou/uL (152-406); Potassium 3.2 mEq/L (3.5-5.1); RBC Red Blood Cell Count 4.24 M/uL (4.33-5.43); Red Cell Distribution Width 13.6 % (12.1-15.2)
[2024-05-02 10:55] LABS: Band Neutrophils 3 % (0-1); Differential Total Cells Count 100; Lymphocytes 6 % (15-42); Monocytes 7 % (0-10); Myelocytes 2 % (0-0); Segmented Neutrophils 82 % (40-80); Toxic Granulation 1+
[2024-05-02 10:56] LABS: Blood Morphology Comment NOT SEEN (NOT SEEN); Platelet Estimate ADEQ
[2024-05-02] MEDS: VANCOMYCIN 1.5 GM in NA CHLORIDE 0.9% 500 ML IVPB SCH (13:39)
[2024-05-02 15:14] LABS: Urine Bilirubin NEGATIVE (Negative); Urine Blood 3+ (OVER) (Negative); Urine Clarity Extremely Turbid (Clear); Urine Color Light-Yellow (Yellow); Urine Glucose 4+ (Over) (Negative); Urine Ketones NEGATIVE (Negative); Urine Nitrite NEGATIVE (Negative); Urine Protein TRACE (Negative); Urine Urobilinogen Normal (Normal); Urine pH 5.5 (5.0-7.0)
[2024-05-02 15:15] LABS: Sqamous Epithelial <5 /HPF (None Seen); Urine Bacteria <20 /HPF (<20); Urine Culture Reflex Order REFLEXED; Urine Micro Reflex YN NO BILL MICROSCOPIC; Urine Mucus Slight /HPF (None Seen); Urine RBC >50 /HPF (None Seen); Urine WBC >50 /HPF (<5); Urine WBC Clump Few /HPF (None Seen)
[2024-05-02] MEDS: ACETAMINOPHEN 500 MG TAB PO PRN (20:25)
--- NOTE | 2024-05-03 06:32 | P.PN ---
Date of Service: 05/03/24 Subjective, Hematuria, urinary frequency, repeat UA, repeat blood cultures, Cardiology consult to rule out endocarditis Review of Systems 10-point ROS is otherwise unremarkable Physical Examination - Vital Signs reviewed - Physical Exam General: Alert, generalized weakness Neck: Supple, 2+ carotid pulse no bruit, Respiratory: Equal unlabored, Cardiovascular: Regular rate/rhythm, Normal S1 S2 Gastrointestinal: suprapubic tenderness, urinary free Musculoskeletal: No clubbing, No swelling, No tenderness Integumentary: No rashes Neurological: Normal gait, Normal speech, Normal strength at 5/5 x4 extr Urinary hematuria, suprapubic tenderness, frequency Assessment & Plan - Problems (Diagnosis) Bacteremia acute Leukocytosis acute Blood/urine cultures, trend cultures, positive for anaerobic, gram-positive cocci in clusters Cardiology consult (will get echo rule out vegetative, endocarditis) Trend lactic, WBC Continue with aggressive IV hydration along with IV antibiotic therapy, start vancomycin Repeat blood cultures, urine culture Step up IV antibiotics to Merrem, vancomycin, probiotic added Diabetic ketoacidosis acute Uncontrolled diabetes with hyperglycemia acute Sliding scale insulin, A1c, Accu-Chek Start long-acting insulin aggressive Gross hematuria acute Pyelonephritis of right kidney acute Hydronephrosis, right acute Nephrolithiasis acute on chronic Right renal mass acute Urology consult Nephrology consult CT of the abdomen 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 GI DVT prophylaxis Full code Discharge Plan: Home Plan to discharge in: Greater than 2 days - Advance Directives Does patient have a Living Will: No Does patient have a Durable POA for Healthcare: No - Code Status/Comfort Care Code Status Assessed: Yes Code Status: Full Code Critical Care: No Time Spent Managing PTS Care (In Minutes): 35 <Maribel Carlos - Last Filed: 05/03/24 06:44> Chart has been reviewed. Events of the last 24 hours have been noted. Case discussed with CARY. I performed a substantial part of the MDM during this patient's care today. I personally made or approved the documented management plan and acknowledge its risk of complications. I agree with the findings and documentation provided in the CARY's notes. Continue with IV antibiotics and Patient with MSSA bacteremia. Continue with IV antibiotics and repeat cultures pending. Consult cardiology for JERI. Reconsult urology for further recommendations re: persistent pyelonephritis. <Dameon Landeros - Last Filed: 05/05/24 03:11>
[2024-05-03] MEDS: NA CHLORIDE 0.9% 1,000 ML IV SCH (07:00)
[2024-05-03] MEDS ORDERED: VANCOMYCIN 1.25 GM in NA CHLORIDE 0.9% 250 ML IVPB SCH ×2 (07:00→09:00)
[2024-05-03] MEDS: KCL 20 MEQ/100 mL IVPB 20 MEQ/100 ML BAG IV SCH (07:00)
[2024-05-03 07:14] LABS: Absolute Basophils 0.1 K/uL (0-0.5); Absolute Eosinophils 0.1 K/uL (0-0.5); Absolute Lymphocytes (CBC) 1.1 K/uL (0.7-4.9); Basophils % 0.6 % (0-1.3); Eosinophils % 0.5 % (0-4.4); Hematocrit 37.2 % (39.6-49.0); Hemoglobin 12.9 g/dL (13.6-17.9); Lymphocytes % 6.9 % (15.3-44.8); MCH 31.3 pg (27.0-35.0); MCHC 34.6 g/dL (32.0-36.0); MCV 90.2 fL (80-100); MPV 8.1 fL (7.6-11.3); Monocytes % 6.2 % (3.3-12.3); Neutrophils % 85.8 % (41.7-73.7); Platelets 251 thou/uL (152-406); RBC Red Blood Cell Count 4.13 M/uL (4.33-5.43); Red Cell Distribution Width 13.7 % (12.1-15.2)
[2024-05-03 07:31] LABS: Magnesium 2.2 mg/dL (1.6-2.4)
--- NOTE | 2024-05-03 08:46 | RAD REPORT ---
EXAM DESCRIPTION: CT - Chest Abdomen Pelvis W Cont - 05/03/2024 8:17 am CLINICAL HISTORY: Chest and abdomen pain. pyelonephritis; endocarditis; persistent bacteremi COMPARISON: Abdomen Pelvis W Contrast dated 04/30/2024 TECHNIQUE: Approximately 100 mL nonionic IV contrast was administered to the patient. All CT scans are performed using dose optimization technique as appropriate and may include automated exposure control or mA/KV adjustment according to patient size. FINDINGS: 12 mm nonspecific nodule is seen posterior left upper lobe abutting the fissure and pleura l surface (image [id number]).Mild linear atelectasis is present in both posterior lung bases with trace b ilateral pleural effusions.No intrathoracic adenopathy. Mild diffuse fatty liver is present. The spleen, pancreas, adrenal glands and left kidney are within normal limits. The right kidney has a very abnormal appearance appears enlarged and inflamed compatib le with pyelonephritis. Small amount perinephric fluid present has developed. . Small calculi are pre sent in the calices of right kidney. No significant hydronephrosis. Urinary bladder wall thickening i s present. Small amount of free fluid is seen in the pelvis. Prominent sigmoid diverticulosis coli without diver ticulitis. Normal appendix. No pathologic lymphadenopathy in the abdomen or pelvis. No worrisome osseous finding. IMPRESSION: Significantly abnormal right kidney appearance likely related to pyelonephritis. Mild pe rinephric fluid is present on the right showing some features of enhancement which could be early rig ht perinephric abscess. Mild free fluid is seen in the pelvis. Urinary bladder wall thickening diffusely likely related to cystitis.
[2024-05-03] MEDS ORDERED: CEFTRIAXONE 2,000 MG in NA CHLORIDE 0.9% 100 ML IV SCH (09:00)
[2024-05-03] MEDS: INSULIN GLARGINE 100 UNIT/ML SQ SCH (09:00)
[2024-05-03] MEDS: NA CHLORIDE 0.9% 100 ML ONE (09:48)
[2024-05-03] MEDS: Meropenem 1,000 MG in NA CHLORIDE 0.9% 100 ML IV SCH (10:00)
[2024-05-03] MEDS: POTASSIUM CL SA 10 MEQ TAB PO SCH (10:01)
[2024-05-03] MEDS: LACTOBACILLUS/ACIDOPHILUS TAB PO SCH (10:03)
[2024-05-03] MEDS: VANCOMYCIN 1.5 GM in NA CHLORIDE 0.9% 500 ML IVPB SCH (11:30)
[2024-05-03] MEDS: Mupirocin NASAL 2 APPL/1 GM TUBE NAS SCH (12:34)
--- NOTE | 2024-05-03 12:40 | RAD REPORT ---
EXAM DESCRIPTION: RAD - Chest Single View - 05/03/2024 12:34 pm CLINICAL HISTORY: confirm placement of PICC COMPARISON: Abdomen Pelvis Wo Contrast dated 02/06/2023No comparisonsNo comparisonsNo comparisonsNo comparisons FINDINGS: Portable chest was obtained following placement of a left upper extremity PICC line. The c atheter tip projects over the SVC.
[2024-05-03 12:48] LABS: 1,25 Dihydroxy Vitamin D3 9 pg/mL; Vitamin D 1,25-Dihydroxy Total 9 pg/mL (18-72); Vitamin D,1,25-OH2, D2 <8 pg/mL
--- NOTE | 2024-05-03 14:43 | P.CNS ---
Date of Consult: 05/03/24 Chief Complaint: Hematuria; CARIDAD; lactic acidosis; leukocytosis History of Present Illness: Patient was admitted for hematuria, found to have possible UTI, Also positive Blood cultures, on antiobiotics, cardiology was consulted for possible endocarditis. Allergies No Known Allergies Allergy (Verified 04/29/24 22:55) Home Medications: NK [No Home Meds] 04/29/24 - Past Medical/Surgical History Diabetic: Yes - Family History Father Family History: Reviewed- Non-Contributory - Social History Smoking Status: Current every day smoker Alcohol use: No CD- Drugs: No Caffeine use: Yes Place of Residence: Home Review of Systems 10-point ROS is otherwise unremarkable Physical Examination Temp Pulse Resp BP Pulse Ox 97.7 F 90 16 146/68 H 95 05/03/24 11:48 05/03/24 11:48 05/03/24 08:00 05/03/24 11:48 05/03/24 08:00 General: Alert, In no apparent distress HEENT: Atraumatic, PERRLA, Mucous membr. moist/pink, EOMI, Sclerae nonicteric Neck: Supple, 2+ carotid pulse no bruit, No LAD, Without JVD or thyroid abnormality Respiratory: Clear to auscultation bilaterally, Normal air movement Cardiovascular: Regular rate/rhythm, Normal S1 S2 Gastrointestinal: Normal bowel sounds, No tenderness Musculoskeletal: No tenderness Integumentary: No rashes Neurological: Normal gait, Normal speech, Normal tone, Normal affect Lymphatics: No axilla or inguinal lymphadenopathy - Problems (1) Bacteremia Current Visit: Yes Status: Acute Plan: cardiology was consulted to rule out endocarditis, plan is for JERI in am, keep NPO after midnight. (2) Diabetes Current Visit: Yes Status: Acute Plan: tight glycemic control. (3) Gross hematuria Current Visit: Yes Status: Acute Plan: per Urology team.
[2024-05-04 07:05] LABS: Absolute Eosinophils 0.1 K/uL (0-0.5); Absolute Monocytes 0.8 K/uL (0.1-1.3); Absolute Neutrophil 13.4 K/uL (1.8-8.0); Basophils % 0.2 % (0-1.3); Eosinophils % 0.6 % (0-4.4); Hematocrit 31.9 % (39.6-49.0); Hemoglobin 10.9 g/dL (13.6-17.9); Lymphocytes % 6.4 % (15.3-44.8); MCH 30.8 pg (27.0-35.0); MCHC 34.1 g/dL (32.0-36.0); MCV 90.5 fL (80-100); MPV 7.9 fL (7.6-11.3); Monocytes % 5.1 % (3.3-12.3); Neutrophils % 87.7 % (41.7-73.7); Platelets 287 thou/uL (152-406); RBC Red Blood Cell Count 3.53 M/uL (4.33-5.43); Red Cell Distribution Width 13.9 % (12.1-15.2)
[2024-05-04 07:24] LABS: Anion Gap 6.4 mEq/L (5.0-15.0); Potassium 3.4 mEq/L (3.5-5.1)
--- NOTE | 2024-05-04 07:30 | ECHO ---
HEIGHT: 5 ft 10 in WEIGHT: 180 lb 0 oz DATE OF STUDY: 05/01/[address]: Maribel Carlos DWARF TREE GROWER-Vlad 2-DIMENSIONAL: YES M.MODE: YES DOPPLER: YES COLOR FLOW: YES TDS: PORTABLE: YES DEFINITY: BUBBLE STUDY: DIAGNOSIS: BACTEREMIA/ VEGETATION CARDIAC HISTORY: CATHERIZATION: SURGERY: PROSTHETIC VALVE: PACEMAKER: MEASUREMENTS (cm) DIASTOLIC (NORMALS) SYSTOLIC (NORMALS) IVSd 0.9 (0.6-1.2) LA Diam 3.6 (1.9-4.0) LVEF 60-65% LVIDd 4.8 (3.5-5.7) LVIDs 3.3 (2.0-3.5) %FS 31% LVPWd 1.1 (0.6-1.2) Ao Diam 3.2 (2.0-3.7) 2 DIMENSIONAL ASSESSMENT: RIGHT ATRIUM: NORMAL LEFT ATRIUM: NORMAL RIGHT VENTRICLE: NORMAL LEFT VENTRICLE: NORMAL TRICUSPID VALVE: TRACE TRICUSPID REGURGITATION MITRAL VALVE: NORMAL PULMONIC VALVE: NORMAL AORTIC VALVE: NORMAL PERICARDIAL EFFUSION: NONE AORTIC ROOT: NORMAL LEFT VENTRICULAR WALL MOTION: NORMAL DOPPLER/COLOR FLOW: NORMAL COMMENTS: 1. NORMAL LEFT VENTRICULAR SYSTOLIC FUNCTION, EJECTION FRACTION 60-65%, NORMAL WALL MOTION 2. NORMAL DIASTOLIC FUNCTION 3. NO VEGETATION TECHNOLOGIST: NHUNG SUN
[2024-05-04] MEDS: ATROPINE SULF 1 MG/10 ML SYR IV ONE (09:04)
[2024-05-04] MEDS ORDERED: LIDOCAINE 1% MPF 5 ML VIAL ONE (09:21)
[2024-05-04] MEDS ORDERED: propofoL 200 MG/20 ML VIAL IV ONE (09:21)
--- NOTE | 2024-05-04 09:58 | P.PN ---
Subjective Date of Service: 05/04/24 Chief Complaint: Hematuria; CARIDAD; lactic acidosis; leukocytosis Pt is is resting comfortably in bed. He denies any hematuria. Waiting for JERI to r/o endocarditis. No other complaints. Review of Systems General: Unremarkable Eyes: Unremarkable ENT: Unremarkable Respiratory: Unremarkable Cardiovascular: Unremarkable Gastrointestinal: Unremarkable Genitourinary: Unremarkable Musculoskeletal: Unremarkable Integumentary: Unremarkable Neurological: Unremarkable Lymphatics: Unremarkable Physical Examination - Vital Signs Temperature: 97.8 F Blood Pressure: 134/64 Pulse: 84 Respirations: 20 Pulse Ox (%): 98 - Physical Exam General: Alert, In no apparent distress, Oriented x3 HEENT: Atraumatic, Normocephalic, PERRLA Neck: Supple, 2+ carotid pulse no bruit Respiratory: Clear to auscultation bilaterally, Normal air movement Cardiovascular: No edema, Normal pulses, Regular rate/rhythm, Normal S1 S2 Capillary refill: <2 Seconds Gastrointestinal: Normal bowel sounds, Soft and benign, Non-distended Musculoskeletal: No clubbing, No swelling, No contractures Integumentary: No rashes, No breakdown, No significant lesion Neurological: Normal gait, Normal speech, Normal strength at 5/5 x4 extr Lymphatics: No axilla or inguinal lymphadenopathy Assessment And Plan - Plan Acute Bacteremia: Blood cx is growing gram positive cocci in clusters. Cardiology will do JERI to r/o Endocarditis. Will continue IVF, iv vanc and merrem. PICC line is in place. Will trend lactate and repeat blood cx. Diabetic ketoacidosis : Pt presented with uncontrolled diabetes with hyperglycemia acute. Will continue accuchek, SSI and ADA diet Gross hematuria: resolved. Will monitor H/H. 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 Will starin urine for renal stone. Will also repeat CT abd and check PTH-RP and vasopressin levels CARIDAD (acute kidney injury): Will avoid nephrotoxins, continue IVfa nd monitor renal function. cr is 0.75. Hyponatremia: resolved. N ais 139. Will monitor. Hypocalcemia: calcium is 7.1. Will avoid check vitamin D level and ionized calcium. Hypokalemia: K is 3.4. Will replete and monitor. GI ppx: protonix DVT ppx: SCD Code: Full code Dispo: Pending hospital course
--- NOTE | 2024-05-04 10:00 | P.PN ---
Subjective Date of Service: 05/04/24 Chief Complaint: Hematuria; CARIDAD; lactic acidosis; leukocytosis Subjective: No new changes, No C/O voiced, Tolerating diet, Ambulating, Improving Review of Systems 10-point ROS is otherwise unremarkable Physical Examination - Vital Signs Temperature: 97.8 F Blood Pressure: 134/64 Pulse: 84 Respirations: 20 Pulse Ox (%): 98 - Physical Exam General: Alert, In no apparent distress HEENT: Atraumatic, PERRLA, EOMI Neck: Supple, JVD not distended Respiratory: Clear to auscultation bilaterally, Normal air movement Cardiovascular: Regular rate/rhythm, Normal S1 S2 Gastrointestinal: Normal bowel sounds, No tenderness Musculoskeletal: No tenderness Integumentary: No rashes Neurological: Normal speech, Normal tone, Normal affect Lymphatics: No axilla or inguinal lymphadenopathy - Studies Medications List Reviewed: Yes Assessment And Plan - Current Problems (Diagnosis) (1) Bacteremia Current Visit: Yes Status: Acute Plan: cardiology was consulted to rule out endocarditis, JERI done today and there is no sign of vegetations. (2) Diabetes Current Visit: Yes Status: Acute Plan: tight glycemic control. (3) Gross hematuria Current Visit: Yes Status: Acute Plan: per Urology team.
[2024-05-04] MEDS: POTASSIUM CL SA 10 MEQ TAB PO ONE (10:44)
--- NOTE | 2024-05-04 11:06 | TEE ---
TRANSESOPHAGEAL ECHOCARDIOGRAM REPORT CARDIOLOGY DEPARTMENT DATE OF STUDY: 05/04/2024 HEIGHT: 5'10" WEIGHT: 180 lbs DIAGNOSIS: ENDOCARDITIS HEALTH SCIENCE INSTRUCTOR COMMENTS: JERI CARDIAC HISTORY: CATHERIZATION: SURGERY: PROSTHETIC VALVE: PACEMAKER: 2 DIMENSIONAL ASSESSMENT: RIGHT ATRIUM: NORMAL LEFT ATRIUM: NORMAL RIGHT VENTRICLE: NORMAL LEFT VENTRICLE: NORMAL TRICUSPID VALVE: NORMAL MITRAL VALVE: NORMAL, TRACE MITRAL REGURGITATION PULMONIC VALVE: NORMAL AORTIC VALVE: NORMAL PERICARDIAL EFFUSION: NONE AORTIC ROOT: NORMAL EJECTION FRACTION: LEFT VENTRICULAR WALL MOTION: NORMAL DOPPLER/COLOR FLOW: NOT ASSESSED COMMENTS: 1. NORMAL VALVE FUNCTION 2. NO VEGETATION SEEN TECHNOLOGIST: NHUNG SUN
[2024-05-04 12:03] VITALS: O2SAT 98
[2024-05-04] MEDS: VANCOMYCIN 1.5 GM in NA CHLORIDE 0.9% 500 ML IVPB SCH (18:55)
[2024-05-05] MEDS: HYDRALAZINE HCL 20 MG/ML VIAL IV ONE (06:09)
[2024-05-05 06:31] LABS: Absolute Basophils 0.1 K/uL (0-0.5); Absolute Eosinophils 0.2 K/uL (0-0.5); Absolute Lymphocytes (CBC) 1.2 K/uL (0.7-4.9); Absolute Monocytes 0.8 K/uL (0.1-1.3); Absolute Neutrophil 11.6 K/uL (1.8-8.0); Basophils % 0.6 % (0-1.3); Eosinophils % 1.1 % (0-4.4); Hematocrit 27.8 % (39.6-49.0); Hemoglobin 9.4 g/dL (13.6-17.9); Lymphocytes % 8.7 % (15.3-44.8); MCH 30.9 pg (27.0-35.0); MCHC 33.9 g/dL (32.0-36.0); MCV 91.3 fL (80-100); MPV 7.7 fL (7.6-11.3); Monocytes % 5.8 % (3.3-12.3); Neutrophils % 83.8 % (41.7-73.7); Nucleated Red Blood Cells % 0.1 % (0-0); Platelets 336 thou/uL (152-406); RBC Red Blood Cell Count 3.05 M/uL (4.33-5.43); Red Cell Distribution Width 13.8 % (12.1-15.2)
[2024-05-05 06:53] LABS: Anion Gap 6.9 mEq/L (5.0-15.0); Magnesium 1.6 mg/dL (1.6-2.4); Potassium 3.9 mEq/L (3.5-5.1)
[2024-05-05] MEDS: METOPROLOL XL 25 MG TAB PO SCH (08:43)
--- NOTE | 2024-05-05 09:51 | P.PN ---
Subjective Date of Service: 05/05/24 Chief Complaint: Hematuria; CARIDAD; lactic acidosis; leukocytosis Pt is is resting comfortably in bed. He denies any hematuria. JERI is negative for endocarditis. Will optimize BP regimen.No other complaints. Review of Systems General: Unremarkable Eyes: Unremarkable ENT: Unremarkable Respiratory: Unremarkable Cardiovascular: Unremarkable Gastrointestinal: Unremarkable Genitourinary: Unremarkable Musculoskeletal: Unremarkable Integumentary: Unremarkable Neurological: Unremarkable Lymphatics: Unremarkable Physical Examination - Vital Signs Temperature: 97.9 F Blood Pressure: 140/68 Pulse: 90 Respirations: 16 Pulse Ox (%): 98 - Physical Exam General: Alert, In no apparent distress, Oriented x3 HEENT: Atraumatic, Normocephalic, PERRLA Neck: Supple, 2+ carotid pulse no bruit Respiratory: Clear to auscultation bilaterally, Normal air movement Cardiovascular: No edema, Normal pulses, Regular rate/rhythm, Normal S1 S2 Capillary refill: <2 Seconds Gastrointestinal: Normal bowel sounds, Soft and benign, Non-distended Musculoskeletal: No clubbing, No swelling, No contractures Integumentary: No rashes, No breakdown, No significant lesion Neurological: Normal gait, Normal speech, Normal strength at 5/5 x4 extr Lymphatics: No axilla or inguinal lymphadenopathy - Studies Medications List Reviewed: Yes Assessment And Plan - Plan Acute Bacteremia: Blood cx is growing gram positive cocci in clusters. JERI is negative for endocarditis. Will continue IVF, iv vanc and merrem. PICC line is in place. Will trend lactate and repeat blood cx. Diabetic ketoacidosis : Pt presented with uncontrolled diabetes with hyperglycemia acute. Will continue accuchek, SSI and ADA diet Gross hematuria: resolved. Will monitor H/H. 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 Will starin urine for renal stone. Will also repeat CT abd and check PTH-RP and vasopressin levels CARIDAD (acute kidney injury): Will avoid nephrotoxins, continue IVfa nd monitor renal function. cr is 0.75. Hyponatremia: resolved. Na is 140. Will monitor. Hypocalcemia: calcium is 7.1. Will avoid check vitamin D level and ionized calcium. Hypokalemia: K is 3.9. Will replete and monitor. GI ppx: protonix DVT ppx: SCD Code: Full code Dispo: Pending hospital course
[2024-05-05] MEDS ORDERED: MORPHINE 2 MG/ML SYR IV PRN (10:48)
[2024-05-05] MEDS: SMZ./TMP. 800/160 MG TABLET PO SCH (20:04)
[2024-05-06 05:49] LABS: Absolute Basophils 0.1 K/uL (0-0.5); Absolute Eosinophils 0.1 K/uL (0-0.5); Absolute Lymphocytes (CBC) 1.2 K/uL (0.7-4.9); Absolute Monocytes 0.8 K/uL (0.1-1.3); Absolute Neutrophil 9.6 K/uL (1.8-8.0); Basophils % 0.4 % (0-1.3); Eosinophils % 1.1 % (0-4.4); Hematocrit 26.1 % (39.6-49.0); Hemoglobin 8.9 g/dL (13.6-17.9); Lymphocytes % 10.3 % (15.3-44.8); MCH 30.9 pg (27.0-35.0); MCV 90.7 fL (80-100); MPV 7.4 fL (7.6-11.3); Monocytes % 6.5 % (3.3-12.3); Neutrophils % 81.7 % (41.7-73.7); Platelets 364 thou/uL (152-406); RBC Red Blood Cell Count 2.88 M/uL (4.33-5.43)
[2024-05-06 05:52] LABS: Anion Gap 4.8 mEq/L (5.0-15.0); Potassium 3.8 mEq/L (3.5-5.1)
--- NOTE | 2024-05-06 10:44 | P.DS ---
Admission Date: 04/29/24 Discharge Date: 05/06/24 Disposition: DC HOME/HOME HEALTH CARE Discharge Condition: GOOD Reason for Admission: Hematuria; CARIDAD; lactic acidosis; leukocytosis Brief History of Present Illness: Patient is a 58-year-old gentleman came to the hospital for hematuria. According to patient's son has been going on for about a week. Patient did not want to come into the hospital, but the son who was in the medical field persuaded him to go get evaluated. Patient had gross hematuria for the last 5 to 6 days. He also had gross hematuria this morning, but after getting IV fluids in the ER the patient states that is pretty much resolved. He has not noticed any bright red blood since he has been in the emergency room. His urine is a dark [employer] type color. Patient had imaging studies in the emergency room-CT stone protocol-which revealed that patient had right-sided nephrolithiasis with possible right hydronephrosis and right perinephric stranding. Patient also had a right renal mass which was about 1 cm. It was in the inferior pole of the right kidney. Patient will get started on IV antibiotics. Patient denies any weight loss, and patient denies any generalized weakness. At this time, patient will be admitted to the hospital for inpatient hospitalization. Will do aggressive IV hydration and IV antibiotics. Will consult urology for further assistance in patient's care. Will also get a renal ultrasound. Patient may need further CT imaging to further evaluate the right renal mass, so we will wait for urology evaluation prior to deciding on this. Hospital Course: Patient is a 58yo female with past medical history of DM Ii who presented with hematuria that started 1 week before this admission. On admission, the hematuria resolved after pt received IVF in the ER. His urine was cola colored. CT abd showed right-sided nephrolithiasis with possible right hydronephrosis and right perinephric stranding. Patient also had a right renal mass which was about 1 cm. It was in the inferior pole of the right kidney. 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 Urinalysis was positive for UTI. We suspected Pyelonephritis and started iv rocephin. Blood culture later grew staph aureus. We broadened antibiotics to iv vancomycin and merrem. We consulted Urology. Cardiology did JERI which ruled out cardiac vegetation. CARIDAD resolved with IVF. We monitored electrolytes and advised pt to follow up with Dr. Fisher in clinic. Pt was later discharged with Bactrim DS for 1 week. He was in NAD prior to discharge. Vital Signs/Physical Exam: Temp Pulse Resp BP Pulse Ox 97.5 F 96 H 20 130/60 96 05/06/24 08:00 05/06/24 08:14 05/06/24 08:00 05/06/24 08:14 05/06/24 04:00 Laboratory Data at Discharge: WBC 11.80 thou/uL (4.3-10.9) H 05/06/24 05:28 Hgb 8.9 g/dL (13.6-17.9) L 05/06/24 05:28 Hct 26.1 % (39.6-49.0) L 05/06/24 05:28 Plt Count 364 thou/uL (152-406) 05/06/24 05:28 PT 13.5 SECONDS (9.4-12.5) H 04/30/24 10:40 INR 1.23 04/30/24 10:40 APTT 25.6 SECONDS (24.3-36.9) 04/30/24 10:40 Sodium 141 mEq/L (136-145) 05/06/24 05:28 Potassium 3.8 mEq/L (3.5-5.1) 05/06/24 05:28 BUN 15 mg/dL (7-18) 05/06/24 05:28 Creatinine 0.86 mg/dL (0.70-1.30) 05/06/24 05:28 Glucose 122 mg/dL (74-106) H 05/06/24 05:28 Phosphorus 4.9 mg/dL (2.5-4.9) 04/29/24 22:03 Magnesium 1.6 mg/dL (1.6-2.4) 05/05/24 06:20 Total Bilirubin 0.4 mg/dL (0.2-1.0) 05/01/24 11:17 AST 49 U/L (15-37) H 05/01/24 11:17 ALT 48 U/L (16-61) 05/01/24 11:17 Alkaline Phosphatase 167 U/L (45-117) H 05/01/24 11:17 Home Medications: Lactobacillus Acidophilus 1 each PO BID 10 Days #20 tab 07/03/24 Metoprolol Succinate [Toprol Xl*] 25 mg PO DAILY 30 Days #30 tab 05/06/24 Smz./Tmp. [Bactrim Ds 800 MG/160 MG*] 1 tab PO BID 7 Days #14 tab 05/06/24 Tamsulosin [Flomax*] 0.4 mg PO BEDTIME 30 Days #30 cap 05/06/24 New Medications: Smz./Tmp. [Bactrim Ds 800 MG/160 MG*] 1 tab PO BID 7 Days #14 tab Tamsulosin [Flomax*] 0.4 mg PO BEDTIME 30 Days #30 cap Lactobacillus Acidophilus 1 each PO BID 10 Days #20 tab Metoprolol Succinate [Toprol Xl*] 25 mg PO DAILY 30 Days #30 tab Physician Discharge Instructions: 58 year-old patient presented with abdominal pain was noted to have leukocytosis, pyelonephritis, renal mass. Condition improved with IV fluids, IV antibiotics. He was evaluated by urology. Patient tolerating diet, stable for discharge to home with follow-up appointment with primary care physician. Will need to follow-up with urology after discharge. PROBLEM: obstructive LUTS lower urinary tract symptom evaluated by urology, follow-up with urology after discharge Pyelonephritis treated with IV antibiotics, transition to p.o. antibiotic Leukocytosis, treated with IV antibiotics, transition to p.o. antibiotic, trend culture Possible obstructive uropathy, postvoid residuals, Renal mass 1 cm-not seen or noted on repeat CT scan on 627 Hematuria-evaluated by urology Mild diffuse fatty liver-remain on low fat, low cholesterol diet Small hiatal hernia. Active smoker, educated on tobacco cessation DKA-educated on diabetic diet, strict blood glucose Acute kidney injury Anorexia, poor appetite History of nephrolithiasis radiology 04/29/2024 CT without contrast my review: Nonobstructive right 6 mm nephrolithiasis/Bib's plaque in the setting of bilateral perinephric stranding. Negligible/borderline right hydronephrosis but no ureteral calculi or ureteral nephrosis noted. Radiologist review of CT suggested the presence of a 1 cm renal mass. Repeat CT scan with contrast- 04/30 FINDINGS: Mild subsegmental atelectasis is present in both lung bases. Mild diffuse fatty liver. Small hiatal hernia. The spleen, pancreas, adrenal glands left kidney are within normal limits. Punctate calculus is seen midpole right kidney. There is a moderate inflamed appearance of the right kidney with multiple areas of hypoattenuation. This pattern is typical of pyelonephritis. No perinephric abscess. Urinary bladder wall thickening is present. No bowel obstruction, free air, free fluid or abscess. Moderate stool is present throughout the colon. The appendix is normal. No evidence of significant lymphadenopathy. Mild lumbar degenerative changes. IMPRESSION: There is a moderate right pyelonephritis pattern seen. No abscess present UA mixed normal arnol Continue home medicines as previously prescribed GOAL: Clear understanding of disease process INSTRUCTIONS: Physician Discharge Instructions: -Follow-up with PCP in 1 to 2 weeks -Please call Dr. Landeros at [phone] if any questions regarding hospital stay -Please call nursing station at [phone] if any nursing or medication questions -Return to the emergency room if symptoms worsen Diet: AHA Activity: Fall precautions Followup: NONE,NONE [Primary Care Provider] - James Dewey [ACTIVE - CAN ADMIT] -
[2024-05-06 12:01] VITALS: BP 134/64; TEMP 97
== END 2024-05-06 12:09 | disposition home or self-care (01) | DRG 871 ==
LOC: ER 11:27 → ERHOLD 15:57 → 2ND 21:07
PROVIDERS: ADMIT Hospitalist; ATTEND Hospitalist
PROC: 02HV33Z Insertion of Infusion Device into Superior Vena Cava, Percutaneous Approach (ICD-10-PCS; principal; 2024-05-03)
DX: A41.01 Sepsis due to Methicillin susceptible Staphylococcus aureus (principal); E11.10 Type 2 diabetes mellitus with ketoacidosis without coma; N17.9 Acute kidney failure, unspecified; N13.6 Pyonephrosis; E87.1 Hypo-osmolality and hyponatremia; C64.9 Malignant neoplasm of unspecified kidney, except renal pelvis; R65.20 Severe sepsis without septic shock; E86.0 Dehydration; E83.52 Hypercalcemia; E87.6 Hypokalemia; E83.51 Hypocalcemia; K44.9 Diaphragmatic hernia without obstruction or gangrene; N13.9 Obstructive and reflux uropathy, unspecified; F17.210 Nicotine dependence, cigarettes, uncomplicated; R31.0 Gross hematuria; Z79.899 Other long term (current) drug therapy
CPT/HCPCS: 36415; 71045; 71260; 74176; 74177; 76377; 76770; 80048; 80053; 80202; 81001; 81015; 82248; 82306; 82330; 82652; 82947; 83519; 83605; 83735; 83970; 84100; 84145; 84300; 84484; 85025; 85610; 85730; 87040; 87077; 87086; 87088; 87186; 87205; 93005; 93306; 93312; 96374; 99285; J0360; J0461; J0696; J2001; J2185; J2405; J2704; J7030; J7040; Q9967